=== PATIENT | female | born 1960 | race Caucasian/White ===

== ENCOUNTER 2016-07-28 05:48 | Emergency (ER) | payer OTHER ==
[~2016-07-28] VITALS: Ht 157.5 cm; Wt 50.8 kg
[2016-07-28] MEDS ORDERED: KEFLEX500 MG PO (07:46)
[2016-07-28 07:53] VITALS: BP 141/83
== END 2016-07-28 08:08 | disposition home or self-care (01) ==
LOC: EME 05:48
PROC: 0HQ1XZZ Repair Face Skin, External Approach (ICD-10-PCS; principal; 2016-07-28)
DX: S01.112A Laceration without foreign body of left eyelid and periocular area, initial encounter (principal); S09.90XA Unspecified injury of head, initial encounter; W01.198A Fall on same level from slipping, tripping and stumbling with subsequent striking against other object, initial encounter; Y92.009 Unspecified place in unspecified non-institutional (private) residence as the place of occurrence of the external cause; Y93.89 Activity, other specified; I10 Essential (primary) hypertension
CPT/HCPCS: 70450; 99281; 99284